=== PATIENT | male | born 1950 | race Caucasian/White ===

== ENCOUNTER 2020-06-04 08:53 | Emergency (ER) | payer OTHER ==
[2020-06-04 09:50] LABS: BASOPHIL 1.3 % (0-2); EOSINOPHIL 1.5 % (0-7); HCT 51.7 % (42.0-52.0); HGB 17.9 g/dl (13.2-18.0); LYMPHOCYTE 18.6 % (15-48); MCH 34.4 pg (25.0-31.0); MCHC 34.6 g/dL (32.0-36.0); MCV 99.4 fL (78.0-100.0); MONOCYTE 8.8 % (0-12); MPV 9.4 fL (6.0-9.5); NEUTROPHIL 68.9 % (41-80); NRBC 0; PLT 329 K/uL (150-400); RDW 15.1 % (11.5-14.0); WBC 7.6 K/uL (4.0-10.5)
[2020-06-04 10:13] LABS: AMPHETAMINES NEGATIVE (NEGATIVE); BARBITURATES NEGATIVE (NEGATIVE); BILIRUBIN 1+ mg/dL (NEGATIVE); BLOOD NEGATIVE Ery/uL (NEGATIVE); CLARITY CLEAR (CLEAR); COLOR YELLOW (YELLOW); ECSTASY (MDMA) NEGATIVE (NEGATIVE); GLUCOSE (U) NORMAL (NORMAL); LEUKOCYTES NEGATIVE Leu/uL (NEGATIVE); MARIJUANA (THC) NEGATIVE (NEGATIVE); METHADONE NEGATIVE (NEGATIVE); NITRITE NEGATIVE (NEGATIVE); OPIATES NEGATIVE (NEGATIVE); OXYCODONE NEGATIVE (NEGATIVE); PROTEIN NEGATIVE (NEGATIVE); SPECIFIC GRAVITY >=1.030 (1.001-1.030); UROBILINOGEN 0.2 mg/dL (0.2-1.0); pH 5.5 (5.0-9.0)
[2020-06-04 10:16] LABS: INR 0.97 (0.9-1.2); PROTHROMBIN TIME 12.2 SECONDS (11.4-13.6)
[2020-06-04 10:17] LABS: PTT 31.1 SECONDS (22.2-34.7)
[2020-06-04 10:20] LABS: ALBUMIN 4.3 g/dL (3.4-5.0); ALKALINE PHOSHATASE 69 U/L (46-116); ALT 63 U/L (16-63); AST 27 U/L (15-37); BILIRUBIN - TOTAL 1.1 mg/dL (0.2-1.0); BUN 12 mg/dL (7-18); BUN/CREAT RATIO (CALC) 13.3 RATIO; CHLORIDE 101 mmol/L (98-107); CO2 (BICARBONATE) 27 mmol/L (21-32); GLOBULIN (CALCULATION) 3.1 g/dL; GLUCOSE 89 mg/dL (74-106); MAGNESIUM 2.3 mg/dL (1.8-2.4); POTASSIUM 4.7 mmol/L (3.5-5.1); TOTAL PROTEIN 7.4 g/dL (6.4-8.2)
== END 2020-06-04 13:20 | disposition other institution (70) ==
LOC: EDSEX 08:53 → FER 08:53
PROVIDERS: Emergency Medicine
DX: I63.9 Cerebral infarction, unspecified (principal); I10 Essential (primary) hypertension; I48.0 Paroxysmal atrial fibrillation; V47.5XXA Car driver injured in collision with fixed or stationary object in traffic accident, initial encounter; Y92.410 Unspecified street and highway as the place of occurrence of the external cause; Z20.822 Contact with and (suspected) exposure to COVID-19
CPT/HCPCS: 36415; 70450; 71046; 80053; 80305; 81003; 83735; 83880; 84145; 84443; 84484; 85025; 85610; 85730; 93005; G0480; J3490; U0002